=== PATIENT | male | born 1965 | race African-American/Black ===

== ENCOUNTER 2016-10-14 15:04 | Emergency (ER) | payer OTHER ==
[~2016-10-14] VITALS: Ht 167.6 cm; Wt 80.4 kg
[2016-10-14 15:17] VITALS: BP 149/90
== END 2016-10-14 15:42 | disposition home or self-care (01) ==
LOC: ED 15:36
DX: R11.0 Nausea (principal); F17.210 Nicotine dependence, cigarettes, uncomplicated
CPT/HCPCS: 99281

== ENCOUNTER 2016-12-06 13:06 | Emergency (ER) | payer OTHER ==
[~2016-12-06] VITALS: Ht 167.6 cm; Wt 82.4 kg
[2016-12-06 14:23] LABS: RAPID INFLUENZA A Negative (Negative); RAPID INFLUENZA B Negative (Negative)
[2016-12-06] MEDS ORDERED: LISINOPRIL 20 MG TABLET ONE ×2 (14:55→15:15)
[2016-12-06] MEDS ORDERED: LISINOPRIL 10 MG TABLET PO ONE (15:00)
[2016-12-06] MEDS ORDERED: LISINOPRIL 20 MG TABLET PO ONE (15:30)
[2016-12-06 16:08] VITALS: BP 167/103
== END 2016-12-06 16:28 | disposition home or self-care (01) ==
LOC: ED 13:49
DX: J06.9 Acute upper respiratory infection, unspecified (principal); I10 Essential (primary) hypertension
CPT/HCPCS: 36415; 71020; 80047; 87400; 93005; 99285

== ENCOUNTER 2017-05-05 09:59 | Emergency (ER) | payer SELFPAY ==
[~2017-05-05] VITALS: Ht 167.6 cm; Wt 80.5 kg
[2017-05-05 10:15] VITALS: BP 210/111
[2017-05-05 11:22] LABS: BASOPHILS # (AUTO) 0.03 x10^3/uL (0-0.1); BASOPHILS % (AUTO) 0 % (0-1); EOSINOPHILS # (AUTO) 0.23 x10^3/uL (0-0.4); EOSINOPHILS % (AUTO) 3 % (1-7); LYMPHOCYTES # (AUTO) 2.08 x10^3/uL (1-3.4); LYMPHOCYTES % (AUTO) 26 % (22-44); MD NO; MEAN CORPUSCULAR HEMOGLOBIN 29.6 pg (27.5-34.5); MEAN CORPUSCULAR HGB CONC 33.4 g/dL (33.2-36.2); MEAN CORPUSCULAR VOLUME 88.6 fL (81-97); MONOCYTES # (AUTO) 0.48 x10^3/uL (0.2-0.8); MONOCYTES % (AUTO) 6 % (2-9); NEUTROPHILS # (AUTO) 5.22 x10^3/uL (1.8-6.8); NEUTROPHILS % (AUTO) 65 % (42-75); PLATELET COUNT 228 x10^3/uL (130-400); RED BLOOD COUNT 5.45 x10^6/uL (4.38-5.82); RED CELL DISTRIBUTION WIDTH 14.2 % (9.4-14.8)
== END 2017-05-05 13:19 | disposition home or self-care (01) ==
LOC: ED 13:00
DX: K12.0 Recurrent oral aphthae (principal); K12.1 Other forms of stomatitis; I10 Essential (primary) hypertension; F17.200 Nicotine dependence, unspecified, uncomplicated
CPT/HCPCS: 36415; 85025; 99283

== ENCOUNTER 2017-08-10 14:22 | Emergency (ER) | payer OTHER, MEDICAID ==
[~2017-08-10] VITALS: Ht 167.6 cm; Wt 82.0 kg
[2017-08-10] MEDS ORDERED: LISINOPRIL 20 MG TABLET PO ONE (15:00)
[2017-08-10] MEDS ORDERED: LISINOPRIL 20 MG TABLET ONE (15:05)
[2017-08-10 15:30] VITALS: BP 160/100
== END 2017-08-10 15:32 | disposition home or self-care (01) ==
LOC: ED 15:26
DX: J00 Acute nasopharyngitis [common cold] (principal); I10 Essential (primary) hypertension; F17.210 Nicotine dependence, cigarettes, uncomplicated
CPT/HCPCS: 71046; 99284

== ENCOUNTER 2017-08-15 16:30 | Day surgery (SDC) | payer OTHER, MEDICAID ==
[~2017-08-15] VITALS: Ht 167.6 cm; Wt 80.9 kg
[2017-08-15 17:52] LABS: MICROSCOPIC AUTO
[2017-08-15 17:54] LABS: CULTURE INDICATED? NO
[2017-08-15 17:59] LABS: ALANINE AMINOTRANSFERASE 29 U/L (12-78); ALBUMIN 4.6 g/dL (3.4-5.0); ANION GAP 9 mmol/L (5-15); CALCIUM 9.6 mg/dL (8.5-10.1); CHLORIDE 102 mmol/L (98-107); CREATININE 1.42 mg/dL (0.7-1.3)
[2017-08-15] MEDS ORDERED: ONDANSETRON ODT 4 MG ONE (17:59)
[2017-08-15] MEDS ORDERED: FAMOTIDINE 20 MG/2 ML ONE (18:00)
[2017-08-15] MEDS ORDERED: MORPHINE SULFATE 4 MG/ML, 1ML ONE (18:00)
[2017-08-15] MEDS ORDERED: MAALOX/HYOSCYAMINE/LIDOCAINE 45 ML BTL PO ONE (18:00)
[2017-08-15] MEDS ORDERED: MORPHINE SULFATE 4 MG/ML, 1ML IVPush PRN ×3 (18:00→22:00)
[2017-08-15] MEDS ORDERED: ONDANSETRON ODT 4 MG PO ONE (18:00)
[2017-08-15] MEDS ORDERED: MAALOX/HYOSCYAMINE/LIDOCAINE 45 ML BTL ONE (18:00)
[2017-08-15] MEDS ORDERED: FAMOTIDINE 20 MG/2 ML IVP ONE (18:00)
[2017-08-15 18:01] LABS: ALKALINE PHOSPHATASE 58 U/L (45-117); BILIRUBIN,TOTAL 1.1 mg/dL (0.2-1.0); TOTAL PROTEIN 9.3 g/dL (6.4-8.2)
[2017-08-15 18:14] LABS: BASOPHILS # (AUTO) 0.04 x10^3/uL (0-0.1); BASOPHILS % (AUTO) 0 % (0-1); EOSINOPHILS # (AUTO) 0.06 x10^3/uL (0-0.4); EOSINOPHILS % (AUTO) 1 % (1-7); LYMPHOCYTES # (AUTO) 2.47 x10^3/uL (1-3.4); LYMPHOCYTES % (AUTO) 26 % (22-44); MD NO; MEAN CORPUSCULAR HEMOGLOBIN 29.6 pg (27.5-34.5); MEAN CORPUSCULAR HGB CONC 33.6 g/dL (33.2-36.2); MEAN CORPUSCULAR VOLUME 88.1 fL (81-97); MONOCYTES # (AUTO) 0.67 x10^3/uL (0.2-0.8); MONOCYTES % (AUTO) 7 % (2-9); NEUTROPHILS # (AUTO) 6.12 x10^3/uL (1.8-6.8); NEUTROPHILS % (AUTO) 66 % (42-75); PLATELET COUNT 243 x10^3/uL (130-400); RED BLOOD COUNT 6.06 x10^6/uL (4.38-5.82); RED CELL DISTRIBUTION WIDTH 13.6 % (9.4-14.8)
[2017-08-15] MEDS ORDERED: AMPICILLIN/SULBACTAM 3 GM in SODIUM CHLORIDE 0.9% 100 ML IV ONE (19:00)
[2017-08-15 19:15] LABS: INTERNATIONAL NORMALIZED RATIO 0.98 (0.93-1.1); PROTHROMBIN TIME 10.1 Seconds (9.6-11.5)
[2017-08-15] MEDS ORDERED: LISI1TAB3 PO (19:28)
[2017-08-15] MEDS ORDERED: FENTANYL PF 250 MCG/5ML ONE (19:56)
[2017-08-15] MEDS ORDERED: SUCCINYLCHOLINE 20 MG/ML, 10ML ONE (20:00)
[2017-08-15] MEDS ORDERED: ONDANSETRON 2MG/ML, 2ML ONE (20:00)
[2017-08-15] MEDS ORDERED: NEOSTIGMINE 1 MG/ML, 10ML ONE (20:00)
[2017-08-15] MEDS ORDERED: PROPOFOL 10 MG/ML, 20ML ONE (20:00)
[2017-08-15] MEDS ORDERED: DEXAMETHASONE 4 MG/ML, 1ML ONE (20:00)
[2017-08-15] MEDS ORDERED: CEFAZOLIN 1,000 MG ONE (20:00)
[2017-08-15] MEDS ORDERED: ROCURONIUM 10 MG/ML,10ML ONE (20:00)
[2017-08-15] MEDS ORDERED: GLYCOPYRROLATE 0.2MG/1ML, 5ML ONE (20:00)
[2017-08-15] MEDS ORDERED: VASOPRESSIN 20 UNIT/ML, 1ML ONE (20:00)
[2017-08-15] MEDS ORDERED: LIDOCAINE 4%, 4 ML SYR/CANN TP ONE (20:00)
[2017-08-15] MEDS ORDERED: BUPIVACAINE 0.25% INFIL ONE (20:24)
[2017-08-15] MEDS ORDERED: EPINEPHRINE 1 MG/ML, 1ML INFIL ONE (20:25)
[2017-08-15] MEDS ORDERED: FENTANYL PF 100 MCG/2ML IV PRN (20:30)
[2017-08-15] MEDS ORDERED: HYDROcodone/APAP 7.5-325MG/15ML UDC PO PRN (20:30)
[2017-08-15] MEDS ORDERED: hydrALAzine 20 MG/ML, 1ML IV PRN (20:30)
[2017-08-15] MEDS ORDERED: OXYcodone 5 MG/5 ML ORAL.SOL UDC PO PRN (20:30)
[2017-08-15] MEDS ORDERED: ACETAMINOPHEN 325 MG TABLET PO PRN (20:30)
[2017-08-15] MEDS ORDERED: LABETALOL 5MG/ML, 20ML IV PRN (20:30)
[2017-08-15] MEDS ORDERED: ONDANSETRON ODT 8 MG PO PRN (20:30)
[2017-08-15] MEDS ORDERED: PROMETHAZINE 25 MG/ML, 1ML IV PRN (20:30)
[2017-08-15] MEDS ORDERED: OXYcodone 5 MG/5 ML ORAL.SOL UDC ONE (21:09)
[2017-08-15] MEDS ORDERED: LACTATED RINGERS 1,000 ML IV SCH ×2 (22:00)
[2017-08-15] MEDS ORDERED: ONDANSETRON 2MG/ML, 2ML IVPush PRN (22:00)
[2017-08-15] MEDS ORDERED: BUPIVACAINE 0.25% ONE (23:53)
[2017-08-15] MEDS ORDERED: EPINEPHRINE 1 MG/ML, 1ML ONE (23:53)
[2017-08-16 00:30] VITALS: BP 145/94
[2017-08-16] MEDS: HYDROcodone/APAP 5/325 TABLET PO PRN ×2 (01:30→08:47)
[2017-08-16 04:09] VITALS: BP 124/81
[2017-08-16 08:03] VITALS: BP 129/81
[2017-08-16] MEDS ORDERED: HYDR-3240 PO (08:47)
== END 2017-08-16 09:45 | disposition home or self-care (01) ==
LOC: ED 19:21 → 4NOR 21:48 → UNDOADMIN 22:12 → 4NOR 22:12 → SDC 22:30 → ED 22:30 → 4NOR 08-16 09:30 → DCLOUNGE 08-16 09:30 → SDC 08-16 09:45 → UNDODISIN 08-16 09:45
PROVIDERS: ATTEND Surgery
DX: K80.10 Calculus of gallbladder with chronic cholecystitis without obstruction (principal); I10 Essential (primary) hypertension
CPT/HCPCS: 36415; 47562; 76700; 80053; 81001; 83690; 85025; 85610; 88304; 93005; 96374; 96375; 99285; J0171; J0295; J0330; J0690; J1100; J2405; J2704; J2710; J3010; J3490; J7120; Q0162; S0028

== ENCOUNTER 2020-05-01 12:58 | Emergency (ER) | payer MEDICAID, OTHER ==
[~2020-05-01] VITALS: Ht 167.6 cm; Wt 71.1 kg
[~2020-05-01 12:58] MED LIST: HYDR-1067 PO; LISI1TAB23 PO
--- NOTE | 2020-05-01 14:34 | NUR ---
PT TO ROOM FROM LOBBY
--- NOTE | 2020-05-01 15:03 | NUR ---
PT LAYING ON GURNEY AWAKE & COMFORTABLE AT REST, RESPONDS APPROP TO STAFF, COMFORT MEASURES PROVIDED, CALL LIGHT WITHIN REACH.
[2020-05-01 16:05] VITALS: BP 179/109
--- NOTE | 2020-05-01 16:05 | NUR ---
PT CONTINUES LAYING ON GURNEY AWAKE & COMFORTABLE, NAD AT REST, RESPONDS APPROP TO STAFF, NO NEEDS AT THIS TIME, CALL LIGHT WITHIN REACH.
--- NOTE | 2020-05-01 16:37 | NUR ---
PT VERBALIZED UNDERSTANDING OF DC INTRUCTIONS. RESP EVEN AND UNLABORED, NADN. AWAITING SPLINT THEN READY FOR DC.
--- NOTE | 2020-05-01 16:51 | NUR ---
Patient given stirrup/discharge instructions and they have confirmed that they understand the instructions. Patient ambulatory with steady gait.
== END 2020-05-01 16:52 | disposition home or self-care (01) ==
LOC: ED 16:45
DX: S93.492A Sprain of other ligament of left ankle, initial encounter (principal); M79.672 Pain in left foot; I10 Essential (primary) hypertension; X50.1XXA Overexertion from prolonged static or awkward postures, initial encounter; Y93.89 Activity, other specified; Y92.488 Other paved roadways as the place of occurrence of the external cause; Y99.8 Other external cause status
CPT/HCPCS: 99284

== ENCOUNTER 2020-05-30 14:34 | Emergency (ER) | payer SELFPAY ==
[~2020-05-30] VITALS: Ht 167.6 cm; Wt 69.9 kg
[2020-05-30 15:28] VITALS: BP 124/74
== END 2020-05-30 15:29 | disposition home or self-care (01) ==
LOC: ED 15:20
DX: Z00.00 Encounter for general adult medical examination without abnormal findings (principal); I10 Essential (primary) hypertension
CPT/HCPCS: 99281